=== PATIENT | female | born 1990 | race Caucasian/White ===

== ENCOUNTER 2017-08-23 15:12 | Emergency (ER) | payer OTHER ==
--- NOTE | 2017-08-23 15:17 | EDPHY ---
H & P Time Seen by Provider: 08/23/17 15:16 Constitutional: Initial Vital Signs Temperature (C) 37.3 C 08/23/17 15:16 Heart Rate 112 H 08/23/17 15:16 Respiratory Rate 16 08/23/17 15:16 Blood Pressure 146/93 H 08/23/17 15:16 O2 Sat (%) 98 08/23/17 15:16 O2 Delivery Mode Room Air Allergies/Adverse Reactions: latex Allergy (Verified 08/23/17 15:27) Home Medications: Medication Instructions Recorded Ritalin 5mg (*) 08/23/17 Zoloft 50mg (*) 08/23/17 Medical Decision Making ED Course/Re-evaluation: CHIEF COMPLAINT: "I had a seizure" HISTORY OF PRESENT ILLNESS: The patient is a 27 y/o female arriving via EMS with her friends for evaluation following a seizure this afternoon. 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 She has never had a grand mal seizure before and does not take antiepileptics. She recently increased her Ritalin dose for ADHD and was told by her psychiatrist that this could put her at risk for seizures. This afternoon while rock climbing with friends they found her face down in gravel with tonic-clonic seizure activity. She is currently alert and oriented and complaining of only mild abrasions to her elbows and tongue. She denies headache, weakness, paresthesias, recent trauma, or recent illness. REVIEW OF SYSTEMS: A 10 point review of systems was performed and is negative with the exception of the elements mentioned in the history of present illness. PHYSICAL EXAM: HR, BP, O2 Sat, RR. Temp noted General Appearance: Alert, well hydrated, appropriate, and non-toxic appearing. Head: Superficial chin abrasion, otherwise atraumatic without scalp tenderness or obvious injury Eyes: Pupils equal, round, reactive to light and accommodation, EOMI, no trauma , no injection. Ears: Clear bilaterally, no perforation, normal landmarks Nose: Atraumatic, no rhinorrhea, clear. Throat: Mucus membranes moist. Mild tongue abrasion. Neck: Supple, nontender, no lymphadenopathy. Respiratory: No retractions, no distress, no wheezes, and no accessory muscle use. Lungs are clear to auscultation bilaterally. Cardiovascular: Regular rate and rhythm, no murmurs, rubs, or gallops. Good capillary refill all extremities. Gastrointestinal: Abdomen is soft, nontender, non-distended, no masses, no rebound, no guarding, no peritoneal signs. Musculoskeletal: Normal active ROM of all extremities, abrasions to both elbows. Neurological: Alert, appropriate, and interactive. The patient has non-focal cranial nerves, motor, sensory, and cerebellar exam. Skin: No rashes, good turgor, no nodules on palpation. 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 DIFFERENTIAL DIAGNOSIS: The differential diagnosis for the patient's seizure included but was not limited to electrolyte abnormality, alcohol withdrawal, medication noncompliance, head injury, [employer] structural abnormality, and break through seizure. MEDICAL DECISION MAKING: This is a healthy 27 y/o female with a history of absence seizures several years ago who presents after a witnessed tonic-clonic seizure this afternoon in the setting of recently increasing her Ritalin dose. She is not postictal and has a completely normal neurologic exam here. She does have some superficial abrasions to both elbows, chin, and her tongue. In absence of trauma, illness, illicit drugs, electrolyte abnormalities, I suspect the recent increase in Ritalin lowered her seizure threshold and provoked seizure today. Due to seizure history, provoking source, and completely normal neuro exam here, I do not recommend neuro imaging nor initiating antiepileptic medication therapy at this time. Plan for basic labs, wound care, and monitoring. If normal, will discharge home with standard seizure precautions/follow up instructions and recommendation to decrease Ritalin to her prior dosing until she is able to contact her psychiatrist for additional recommendations. Labs are unremarkable. Patient will be discharged as above. Return precautions discussed. - Data Points Laboratory Results: Laboratory Results 08/23/17 15:12 08/23/17 15:12 08/23/17 08/23/17 08/23/17 15:12 15:12 15:12 WBC 12.92 10^3/uL H 10^3/uL (3.80-9.50) RBC 4.45 10^6/uL 10^6/uL (4.18-5.33) Hgb 11.9 g/dL L g/dL (12.6-16.3) Hct 36.3 % L % (38.0-47.0) MCV 81.6 fL fL (81.5-99.8) MCH 26.7 pg L pg (27.9-34.1) MCHC 32.8 g/dL g/dL (32.4-36.7) RDW 12.7 % % (11.5-15.2) Plt Count 411 10^3/uL H 10^3/uL (150-400) MPV 10.7 fL fL (8.7-11.7) Neut % (Auto) 67.3 % % (39.3-74.2) Lymph % (Auto) 26.2 % % (15.0-45.0) Coffee % (Auto) 5.2 % % (4.5-13.0) Eos % (Auto) 0.2 % L % (0.6-7.6) Baso % (Auto) 0.7 % % (0.3-1.7) Nucleat RBC Rel Count 0.0 % % (0.0-0.2) Absolute Neuts (auto) 8.70 10^3/uL H 10^3/uL (1.70-6.50) Absolute Lymphs (auto) 3.38 10^3/uL H 10^3/uL (1.00-3.00) Absolute Monos (auto) 0.67 10^3/uL 10^3/uL (0.30-0.80) Absolute Eos (auto) 0.03 10^3/uL 10^3/uL (0.03-0.40) Absolute Basos (auto) 0.09 10^3/uL 10^3/uL (0.02-0.10) Absolute Nucleated RBC 0.00 10^3/uL 10^3/uL (0-0.01) Immature Gran % 0.4 % % (0.0-1.1) Immature Gran # 0.05 10^3/uL 10^3/uL (0.00-0.10) Sodium 141 mEq/L mEq/L (135-145) Potassium 4.9 mEq/L mEq/L (3.5-5.2) Chloride 105 mEq/L mEq/L (97-110) Carbon Dioxide 22 mEq/l mEq/l (22-31) Anion Gap 14 mEq/L mEq/L (8-16) BUN 16 mg/dL mg/dL (7-23) Creatinine 0.7 mg/dL mg/dL (0.6-1.0) Estimated GFR > 60 Glucose 95 mg/dL mg/dL (70-100) Calcium 9.6 mg/dL mg/dL (8.5-10.4) Beta HCG, Qual NEGATIVE Departure - Departure Disposition: Home, Routine, Self-Care Clinical Impression: Seizure Condition: Good Instructions: Abrasion (ED), New-Onset Seizure in Adults (ED) Additional Instructions: 1. I recommend decreasing your dose of Ritalin. Contact the doctor who prescribes this to discuss dosing recommendations as soon as possible. 2. Follow up with neurologist in the next week. You've been referred to Dr. Castelan locally if needed. 3. Do not drive, operate heavy machinery, bicycle, ride in ski lifts, climb, or participate in other activities that could put you or others at risk in case of a recurrent seizure until cleared by neurology. 4. Return to the ED for severe headache, recurrent seizure, weakness or numbness on one side of your body, fever, or other worsening of condition. Referrals: Hao Castelan MD [Medical Doctor] - As per Instructions Report Scribed for: Nacho Valdovinos Report Scribed by: Shanna Jhaveri Date of Report: 08/23/17 Time of Report: 15:31
[2017-08-23 15:27] VITALS: TEMP 99.1; O2SAT 98
[2017-08-23 15:44] LABS: PLATELET COUNT 411 10^3/uL (150-400)
[2017-08-23 16:08] VITALS: BP 133/72; PULSE 71; RESP 18
== END 2017-08-23 16:07 | disposition home or self-care (01) ==
DX: R56.9 Unspecified convulsions (principal); Z91.040 Latex allergy status